=== PATIENT | female | born 1980 | race Caucasian/White ===

== ENCOUNTER 2019-02-08 08:30 | Observation (INO) | payer OTHER ==
[~2019-02-08] VITALS: Ht 165.1 cm; Wt 75.3 kg
[~2019-02-08 08:30] MED LIST: DSS100 PO; FERR-72 PO; IBUP-2070 PO; PERCT PO; PREN-65 PO
[2019-02-08 08:52] VITALS: BP 112/69
[2019-02-08] MEDS ORDERED: FERR-89 PO (09:19)
[2019-02-08] MEDS ORDERED: PREN-217 PO (09:19)
== END 2019-02-08 09:40 | disposition home or self-care (01) ==
LOC: 4S 08:30
PROVIDERS: ADMIT Obstetrics & Gynecology; ATTEND Obstetrics & Gynecology
DX: O60.03 Preterm labor without delivery, third trimester (principal); Z3A.35 35 weeks gestation of pregnancy

== ENCOUNTER 2019-02-21 10:30 | Observation (INO) | payer OTHER ==
[~2019-02-21] VITALS: Ht 167.6 cm; Wt 75.5 kg
[~2019-02-21 10:30] MED LIST changes: +FERR-89 PO; +PREN-217 PO
[2019-02-21] MEDS ORDERED: RINGERS SOLUTION,LACTATED 1,000 ML IV ONE (11:12)
[2019-02-21 11:23] VITALS: BP 103/64
== END 2019-02-21 13:05 | disposition home or self-care (01) ==
LOC: 4S 10:30
PROVIDERS: ADMIT Obstetrics & Gynecology; ATTEND Obstetrics & Gynecology
DX: Z34.83 Encounter for supervision of other normal pregnancy, third trimester (principal); Z3A.37 37 weeks gestation of pregnancy
CPT/HCPCS: G0378; J7120

== ENCOUNTER 2019-02-21 13:36 | Inpatient (IN) | payer OTHER ==
[~2019-02-21] VITALS: Ht 165.1 cm; Wt 71.7 kg
[2019-02-27] MEDS ORDERED: RINGERS SOLUTION,LACTATED 1,000 ML IV ONE (06:15)
[2019-02-27] MEDS ORDERED: METOCLOPRAMIDE HCL 5 MG/ML 2 ML VIAL IVP ONE (06:15)
[2019-02-27] MEDS ORDERED: CITRIC ACID/SODIUM CITRATE 30 ML SOLUTION UDCUP PO ONE (06:15)
[2019-02-27 07:26] LABS: BASOPHILS % (AUTO) 0.5 % (0.0-2.0); EOSINOPHILS % (AUTO) 0.5 % (1.0-6.0); HEMATOCRIT 29.4 % (36-46); HEMOGLOBIN 9.9 g/dL (12.0-16.0); LYMPHOCYTES # (AUTO) 1.7 K/uL (1.0-4.8); LYMPHOCYTES % (AUTO) 32.4 % (22.0-44.0); MEAN CORPUSCULAR HGB CONC 33.7 G/dL (31.0-37.0); MEAN CORPUSCULAR VOLUME 89 fL (80-100); MONOCYTES # (AUTO) 0.4 K/uL (0.1-1.0); MONOCYTES % (AUTO) 7.8 % (2.0-9.0); NEUTROPHILS # (AUTO) 3.1 K/uL (1.8-7.7); NEUTROPHILS % (AUTO) 58.8 % (40.0-70.0); PLATELET COUNT (AUTO) 231 K/uL (150-450); RED CELL DISTRIBUTION WIDTH 14.7 % (11.5-14.5)
[2019-02-27] MEDS ORDERED: TRIAMCINOLONE ACETONIDE 40 MG/ML VIAL ONE (08:46)
[2019-02-27] MEDS ORDERED: FentaNYL CITRATE-PF 100 MCG/2 ML VIAL IVP PRN (09:30)
[2019-02-27] MEDS ORDERED: NALOXONE HCL 0.4 MG/ML VIAL IVP PRN (09:30)
[2019-02-27] MEDS ORDERED: ONDANSETRON HCL 4 MG/2 ML VIAL IVP PRN (09:30)
[2019-02-27] MEDS ORDERED: MORPHINE SULFATE 10 MG/ML SYRINGE IVP PRN (09:30)
[2019-02-27] MEDS ORDERED: NALBUPHINE HCL 10 MG/ML VIAL IVP PRN ×2 (09:30)
[2019-02-27] MEDS ORDERED: DiphenhydrAMINE HCL 50 MG/ML VIAL IVP PRN (09:30)
[2019-02-27] MEDS ORDERED: LANOLIN 7 GM OINTMENT TP PRN (09:30)
[2019-02-27] MEDS ORDERED: ACETAMINOPHEN/CODEINE 300-30 MG TABLET PO PRN (09:30)
[2019-02-27] MEDS: ACETAMINOPHEN 1000 MG/ISO-OSM 100 ML IV SCH ×2 (12:57→20:51)
[2019-02-27] MEDS: DEXTROSE 5%-0.45% SODIUM CHL 1,000 ML IV SCH ×3 (12:58→20:52)
[2019-02-27] MEDS: KETOROLAC TROMETHAMINE 30 MG/ML VIAL IVP SCH ×2 (16:47→22:31)
[2019-02-27] MEDS ORDERED: OXYGEN THERAPY IH SCH (20:00)
[2019-02-27] MEDS: MAGNESIUM HYDROXIDE SUSPENSION 30 ML UDCUP PO SCH (20:52)
[2019-02-28] MEDS ORDERED: IBUPROFEN 800 MG TABLET PO SCH (03:00)
[2019-02-28] MEDS: DEXTROSE 5%-0.45% SODIUM CHL 1,000 ML IV SCH (03:53)
[2019-02-28] MEDS: KETOROLAC TROMETHAMINE 30 MG/ML VIAL IVP SCH (04:40)
[2019-02-28] MEDS: ACETAMINOPHEN 1000 MG/ISO-OSM 100 ML IV SCH (05:04)
[2019-02-28] MEDS ORDERED: KETOROLAC TROMETHAMINE 60 MG/2 ML VIAL IM ONE (05:35)
[2019-02-28] MEDS ORDERED: OXYTOCIN 10 UNITS/ML VIAL IM ONE (05:35)
[2019-02-28] MEDS ORDERED: MORPHINE SULFATE/PF 0.5 MG/ML 10 ML AMP IVP ONE (05:35)
[2019-02-28] MEDS ORDERED: FentaNYL CITRATE-PF 100 MCG/2 ML VIAL IVP ONE (05:35)
[2019-02-28 08:38] LABS: BASOPHILS % (AUTO) 0.2 % (0.0-2.0); EOSINOPHILS % (AUTO) 0 % (1.0-6.0); HEMATOCRIT 29.2 % (36-46); HEMOGLOBIN 9.8 g/dL (12.0-16.0); LYMPHOCYTES # (AUTO) 1.3 K/uL (1.0-4.8); LYMPHOCYTES % (AUTO) 14.5 % (22.0-44.0); MEAN CORPUSCULAR HEMOGLOBIN 30.3 pg (26.0-34.0); MEAN CORPUSCULAR HGB CONC 33.7 G/dL (31.0-37.0); MEAN CORPUSCULAR VOLUME 90 fL (80-100); MONOCYTES # (AUTO) 0.4 K/uL (0.1-1.0); MONOCYTES % (AUTO) 5.2 % (2.0-9.0); NEUTROPHILS # (AUTO) 6.9 K/uL (1.8-7.7); NEUTROPHILS % (AUTO) 80.1 % (40.0-70.0); PLATELET COUNT (AUTO)-OB 259 K/uL (150-450); RED BLOOD CELL COUNT(AUTO) 3.25 MIL/uL (4.00-5.20); RED CELL DISTRIBUTION WIDTH 15.1 % (11.5-14.5)
[2019-02-28] MEDS: IBUPROFEN 800 MG TABLET PO SCH ×3 (09:59→22:53)
[2019-02-28] MEDS: MAGNESIUM HYDROXIDE SUSPENSION 30 ML UDCUP PO SCH ×2 (09:59→20:38)
[2019-02-28] MEDS: ACETAMINOPHEN/CODEINE 300-30 MG TABLET PO PRN ×2 (13:59→20:40)
[2019-03-01] MEDS: IBUPROFEN 800 MG TABLET PO SCH ×3 (06:58→18:45)
[2019-03-01] MEDS: MAGNESIUM HYDROXIDE SUSPENSION 30 ML UDCUP PO SCH ×2 (09:00→21:00)
[2019-03-01] MEDS: ACETAMINOPHEN/CODEINE 300-30 MG TABLET PO PRN ×2 (13:53→22:22)
[2019-03-02] MEDS: IBUPROFEN 800 MG TABLET PO SCH ×2 (00:10→06:49)
[2019-03-02] MEDS: MAGNESIUM HYDROXIDE SUSPENSION 30 ML UDCUP PO SCH (08:22)
[2019-03-02] MEDS: ACETAMINOPHEN/CODEINE 300-30 MG TABLET PO PRN (08:22)
== END 2019-03-02 12:00 | disposition home or self-care (01) | DRG 788 ==
LOC: 4S 02-27 06:15 → OBSVTOIN 02-27 06:15 → 4S 02-27 11:39
PROVIDERS: ADMIT Obstetrics & Gynecology; ATTEND Obstetrics & Gynecology
PROC: 10D00Z1 Extraction of Products of Conception, Low, Open Approach (ICD-10-PCS; principal; 2019-02-27)
DX: O34.211 Maternal care for low transverse scar from previous cesarean delivery (principal); O99.824 Streptococcus B carrier state complicating childbirth; Z3A.38 38 weeks gestation of pregnancy; Z37.0 Single live birth
CPT/HCPCS: 86850; 86900; 86901; 87081; J0131; J0690; J1885; J2270; J2274; J2590; J2765; J3010; J3301